=== PATIENT | male | born 1935 | race Caucasian/White ===

== ENCOUNTER 2017-07-09 09:52 | Emergency (ER) | payer MEDICARE ==
[2017-07-09] MEDS ORDERED: ALBUTEROL SULFATE/IPRATROPIUM 3 ML NEBU IH ONE ×2 (10:01→10:03)
--- NOTE | 2017-07-09 10:08 | ERNOTE ---
Medical Problem HPI - Narrative Date of Service: 07/09/17 - General Time Seen by Provider: 07/09/17 09:55 Source: patient Exam Limitations: no limitations - Immun/Allergies/Home Medications Immunizations: IMMUNIZATION HX Immunizations Up to Date Yes History of Influenza Vaccine Yes Hx Pneumococcal Vaccination Yes Allergies/Adverse Reactions: Allergies tramadol Adverse Reaction (Mild, Verified 08/02/16 11:26) Itching Home Medications: HOME MEDICATIONS Tamsulosin HCl [Flomax] 0.4 mg PO DAILY 07/10/12 [Last Taken 10/28/12 18:00] Gemfibrozil [Lopid] 600 mg PO BID 10/30/12 [Last Taken 10/22/14] Isosorbide Mononitrate [Imdur] 30 mg PO DAILY 10/30/12 [Last Taken Unknown] glipiZIDE [Glipizide] 10 mg PO TID 10/09/14 [Last Taken 10/22/14] metFORMIN HCL [Glucophage] 1,000 mg PO BIDWM 10/09/14 [Last Taken 10/22/14] Atorvastatin Calcium [Lipitor] 40 mg PO HS 04/08/16 [Last Taken Unknown] Aspirin [Aspirin Enteric Coated] 81 mg PO DAILY 05/28/16 [Last Taken Unknown] Cholestyramine/Aspartame [Questran Light Packet] 4 gm PO BID 05/28/16 [Last Taken Unknown] Ibuprofen [Motrin] 600 - 800 mg PO Q8H PRN 05/28/16 [Last Taken Unknown] Metoprolol Tartrate [Lopressor] 12.5 mg PO BID 05/28/16 [Last Taken Unknown] Nitroglycerin [Nitrostat] 0.4 mg SL Q5MX3 PRN 05/28/16 [Last Taken Unknown] Albuterol Sulfate [Proair Hfa] 2 puff IH Q4H PRN #1 inhaler 07/09/17 [Last Taken Unknown] Azithromycin [Zithromax] 500 mg PO NOW #6 tab 07/09/17 [Last Taken Unknown] - History of Present History Narrative: Patient presents to the ED with complaints of "I have a cold" He relates that he wanted to "get on top of this" because every time he gets this he "gets a Z- Ephraim and is better within a day or two". He denies SOB. He relates he does have some CP since yesterday but this is with cough only. No fever. No other sick contacts. Cough is dry, no hemoptysis. No calf pain, leg swelling or DVT Sx. No pleuritic pain. His symptoms started yesterday. Timing: constant Severity: moderate Modifying Factors - (Improves): Present: other - nothing Modifying Factors - (Worsens): Present: other - nothign Review of Systems - Review of Systems Constitutional: Absent: fever Respiratory: Present: cough. Absent: shortness of breath Cardiology: Present: See HPI Gastrointestinal/Abdominal: Absent: abdominal pain Genitourinary: Absent: dysuria Neurological: Absent: weakness - Patient's Past Medical History Patient History - Medical: Anemia, Diabetes Type 2, Osteoarthritis Patient History - Cardiac/Respiratory: Coronary Heart Disease, Hypertension, Hyperlipidemia, Myocardial Infarction Patient History - Cancer: No Hx of Cancer Patient History - Surgical Procedures: Appendectomy, Cataracts, Cholecystectomy , Coronary Bypass Surgery, Cardiac stent, EGD, Other Patient History - Other: None - Family History Mother Family History - Medical: , No pertinent hx Family History - Cardiac/Respiratory: No pertinent hx Father Family History - Medical: , No pertinent hx Family History - Cardiac/Respiratory: Myocardial Infarction Brother Family History - Medical: , Diabetes Type 2 Family History - Cardiac/Respiratory: Asthma, Myocardial Infarction Sister Family History - Medical: , Other Family History - Cardiac/Respiratory: Aneurysm - Social History Abuse History: No History of abuse Psych History: No pertinent hx - Immunizations Immunizations Up to Date: Yes Hx Pneumococcal Vaccination: Yes History of Influenza Vaccine: Yes Physical Exam - Physical Exam General Appearance: Present: alert, no apparent distress, other - frequent harsh dry cough Head Exam: Present: normal inspection, no evidence of injury Eye Exam: Normal inspection: bilateral, PERRL: bilateral Ears, Nose, Throat: Present: normal ENT inspection Neck: Present: normal inspection Respiratory: Present: no respiratory distress, normal breath sounds, no accessory muscle use, lungs clear Cardiovascular/Chest: Present: regular rate, rhythm, normal peripheral pulses Gastrointestinal/Abdominal: Present: normal bowel sounds, nontender, soft Back Exam: Present: normal range of motion Extremity Exam: Present: normal inspection, non-tender, no edema Neurological Exam: Present: alert, normal mood/affect, no motor/sensory deficits Skin Exam: Present: normal color, warm/dry ED Progress - Results and Orders Patient's Lab Results:: I have reviewed the patient's lab results. - Vital Signs Patient's Vital Signs:: I have reviewed the patient's vital signs. - EKG EKG: NSR EKG read: Interp. by me EKG Comments: NSR rate 67. PVCs. RBBB. No clear evidence of STEMI. - X-Ray X-Ray #1 X-Ray: chest Interpretation: Interp. by me X-ray Comments: I reviewed official radiology report - Progress/Reassessment Progress Note-Subjective: 07/09/17 10:59 Patient feels like going home. He declines second troponin. Clinically nothing to suggest ACS, PE, aortic dissection or other acute life threat. I discussed warning signs and reasons to return as well as the need for close f/u. 07/09/17 11:00 He is requesting a Z-Ephraim, given his Hx and smoking Hx I will go ahead with this and given him an inhaler for cough. Sx for over 24 hours Departure Clinical Impression: Cough - Departure Disposition: Home self-care Condition: Stable Instructions: Cough, Adult, [id number] Additional Instructions: Rest. Fluids. Follow-up Tuesday at your scheduled appointment. Return for trouble breathing, fever or if your condition worsens or changes in any way. Referrals: Suze Daigle MD [Primary Care Provider] - Prescriptions: Albuterol Sulfate [Proair Hfa] 2 puff IH Q4H PRN #1 inhaler PRN Reason: Cough Azithromycin [Zithromax] 500 mg PO NOW #6 tab
[2017-07-09 10:19] LABS: Hematocrit 38.2 % (42.0-52.0); Hemoglobin 12.6 gm/dL (13.5-18.0); Mean Cell Volume 93.2 fl (78-100); Mean Corpuscular Hemoglobin 30.7 pg (27-31); Mean Platelet Volume 10.8 fl (6.0-9.5); Neutrophil # 3.8 K/mm3 (1.3-6.0); Neutrophil % 58.8 % (42-75.0); Platelet Count 115 K/mm3 (150-450); Red Cell Distribution Width 12.5 % (11.5-14.0); White Blood Count 6.5 K/mm3 (4.0-10.5)
[2017-07-09 10:36] LABS: Anion Gap 14.3 mmol/L (6.8-13.8); Blood Urea Nitrogen 31 mg/dL (6-23); Carbon Dioxide 27.3 mmol/L (24-32.6); Chloride 104 mmol/L (97-106); Estimated Creat Clear 41.1; Glucose * 139 mg/dL (70-110); Potassium 4.6 mmol/L (3.4-4.6); Sodium 141 mmol/L (132-142)
[2017-07-09 10:38] LABS: Troponin I Less than 0.017 ng/ml (0.00-0.10)
[2017-07-09 11:12] VITALS: BP 119/68
== END 2017-07-09 11:11 | disposition home or self-care (01) ==
LOC: ER 09:52
DX: R05 Cough (principal)

== ENCOUNTER 2018-10-31 12:51 | Observation (INO) ==
[2018-10-31 13:22] LABS: Hematocrit 38.6 % (42.0-52.0); Hemoglobin 12.7 gm/dL (13.5-18.0); Mean Cell Volume 93.9 fl (78-100); Mean Corpuscular Hemoglobin 30.9 pg (27-31); Mean Corpuscular Hgb Conc 32.9 g/dl (32-36); Neutrophil # 2.8 K/mm3 (1.3-6.0); Neutrophil % 32.8 % (42-75.0); Platelet Count 109 K/mm3 (150-450); Red Blood Count 4.11 M/mm3 (4.7-6.0); Red Cell Distribution Width 12.8 % (11.5-14.0); White Blood Count 8.6 K/mm3 (4.0-10.5)
--- NOTE | 2018-10-31 13:22 | ERNOTE ---
Dyspnea - Date Date of Service: 10/31/18 - General Presenting Symptoms: shortness of breath, difficulty of breathing, other Time Seen by Provider: 10/31/18 13:03 Source: patient - Immun/Allergies/Home Medications Immunizations: IMMUNIZATION HX Immunizations Up to Date Yes History of Influenza Vaccine No Hx Pneumococcal Vaccination Yes Allergies/Adverse Reactions: Allergies tramadol Adverse Reaction (Mild, Verified 08/27/18 08:51) Itching, difficulty sleeping Home Medications: HOME MEDICATIONS Gemfibrozil [Lopid] 600 mg PO BID 10/30/12 [Last Taken 10/22/14] Isosorbide Mononitrate [Imdur] 30 mg PO QAM 10/30/12 [Last Taken Unknown] Aspirin [Aspirin Enteric Coated] 81 mg PO DAILY 05/28/16 [Last Taken Unknown] Ibuprofen [Motrin] 600 - 800 mg PO Q8H PRN 05/28/16 [Last Taken Unknown] nitroglycerin 0.4 mg sublingual tablet 0.4 mg SL Q5MX3 PRN #20 tab 06/27/18 [Last Taken Unknown] atorvastatin 40 mg tablet 40 mg PO DAILY #90 tab 07/31/18 [Last Taken Unknown] metoprolol tartrate 25 mg tablet 12.5 mg PO BID #90 tab 07/31/18 [Last Taken Unknown] glipizide 10 mg tablet 10 mg PO TID #270 tab 09/18/18 [Last Taken Unknown] metformin 1,000 mg tablet 1,000 mg PO BID #60 tab 10/03/18 [Last Taken Unknown] tamsulosin 0.4 mg capsule 0.4 mg PO HS #90 cap 10/30/18 [Last Taken Unknown] - History of Present Illness Narrative: 83-year-old male with a history of coronary artery disease, status post CABG comes to the emergency department complaining of progressive dyspnea on exertion for the last couple of weeks. Of bigger concern to the patient was chest aching and tightness which started this morning. He was sitting in a chair. Did not seem to get worse with exertion. He did have radiation up to his throat and to the left axilla. He relates that this pain is very very similar to the previous heart problems that he has had. He denies having nausea or diaphoresis. The patient has had no dizziness. No palpitations. He says he was supposed to get a stress test in April but he completely forgot the appointment. It has been 2 years since he has had any evaluation of his heart. He sees a doctor up in [place] for cardiology. Patient has no vomiting diarrhea nausea coughing headache blurred vision or any other changes. He did take a baby aspirin today. When I see him in the ER sitting at rest he has no discomfort in the chest whatsoever Review of Systems - Review of Systems Constitutional: Present: no symptoms reported EYE: Present: no symptoms reported ENT: Present: no symptoms reported Respiratory: Present: shortness of breath, other Cardiology: Present: chest pain - Dyspnea on exertion, other - Radiation as described in HPI Gastrointestinal/Abdominal: Present: no symptoms reported. Absent: nausea, vomiting, diarrhea, constipation, abdominal pain Genitourinary: Present: no symptoms reported Musculoskeletal: Present: neck pain, other Skin: Present: no symptoms reported - Chest pain seems to radiate up into the throat Neurological: Present: no symptoms reported Endocrine: Present: no symptoms reported Hematologic/Lymphatic: Present: no symptoms reported Psych: Present: no symptoms reported All Other Systems: All systems neg except as marked Medical History (Last Reviewed 10/31/18 @ 13:38 by Alaina Mendoza RN) Acute arthritis Onset Date: Unknown CAD (coronary artery disease) Onset Date: Unknown CHF (congestive heart failure) Onset Date: Unknown CKD (chronic kidney disease) Onset Date: Unknown Diabetes mellitus, type II Onset Date: Unknown Diverticulosis Onset Date: Unknown H/O barium enema Onset Date: ~08/19/88 Herniated disc Onset Date: Unknown Hyperlipidemia Onset Date: Unknown Hypertension Onset Date: Unknown Myocardial infarct Onset Date: Unknown Neck pain Onset Date: Unknown Psoriasis Onset Date: Unknown Rotator cuff arthropathy of right shoulder Onset Date: Unknown Rotator cuff tear, left Onset Date: Unknown Shoulder pain, right Onset Date: Unknown Sinusitis Onset Date: Unknown Surgical History: Surgical History (Last Reviewed 10/31/18 @ 13:38 by Alaina Mendoza RN) H/O colonoscopy Onset Date: ~08/02/16 [facility]-tubular adenoma. Recheck 5 yrs. History of appendectomy Onset Date: ~1953 History of arthroscopy of left shoulder Onset Date: ~1989 Dr. Haider History of cardiac cath Onset Date: ~2000 [facility]- left heart cath. 08/04/01, 11/10/93 History of cataract surgery Onset Date: ~09/11/10 [place]- left eye History of esophagogastroduodenoscopy (EGD) Onset Date: ~2015 [facility]- clotest negative. mod chemical irritaion, chronic GE junction inflammation. clotest negative. mild reflux esophagitis, benign chemical gastritis. 10/23/14, 08/02/16 Hx of cholecystectomy Onset Date: ~09/14/94 Hx of local excision of skin lesion Onset Date: ~03/27/07 [place]-left cheek- actinic keratosis Rotator cuff tear Onset Date: ~07/17/12 [facility]--arthroscopic-left S/P epidural steroid injection Onset Date: ~2004 L4-5 07/29/05, 07/13/05 coronary artery bypass graft Onset Date: ~11/11/93 Dr. Donohue Family History: Family History (Last Reviewed 10/31/18 @ 13:38 by Alaina Mendoza RN) Father , 75 Myocardial infarction Mother , 83 Cancer uterine and ovarian Brother , 2 age 65 and 45 Diabetes Asthma Myocardial infarction Heart disease Tuberculosis 2 age 65 and 45 Sister , 2 age 45 and 9 Cerebral aneurysm diptheria 2 age 45 and 9 Sister Hypertension Social History: Preferred Language Stateless Smoking Status Never smoker Abuse History No History of abuse Psych History No pertinent hx (Last Updated 06/23/18 @ 14:49 by Suze Daigle MD) No Social History Section defined Physical Exam - Physical Exam General Appearance: Present: wd/wn, alert, no apparent distress Head Exam: Present: normal inspection, no evidence of injury Eye Exam: Normal inspection: right - Right eye has some conjunctival hemorrhage or blood inferiorly. Patient relates this to an injection for his cataracts he got a few days ago, PERRL: bilateral, EOMI: bilateral Ears, Nose, Throat: Present: normal ENT inspection, normal pharynx Neck: Present: normal inspection, nontender, supple, full range of motion Respiratory: Present: no respiratory distress, normal breath sounds, chest nontender, lungs clear Cardiovascular/Chest: Present: regular rate, rhythm, no murmur Gastrointestinal/Abdominal: Present: normal bowel sounds, nontender, nondistended, soft Back Exam: Present: normal inspection, normal range of motion, no CVA tenderness Extremity Exam: Present: normal inspection, non-tender - Trace of pretibial edema bilateral lower extremities, normal range of motion, other Neurological Exam: Present: alert, oriented, normal mood/affect, no motor/sen linda deficits Skin Exam: Present: normal color, warm/dry Lymphatic Exam: Present: no adenopathy Progress - Results and Orders Patient's Lab Results:: I have reviewed the patient's lab results. - Vital Signs Patient's Vital Signs:: I have reviewed the patient's vital signs. Vital Signs: Vital Signs 10/31/18 12:51 Pulse Rate 64 Respiratory Rate 14 Blood Pressure 141/60 O2 Sat by Pulse Oximetry 97 - EKG EKG #1 EKG: NSR EKG read: Interp. by me EKG Comments: EKG shows sinus rhythm with a VT interval of 208 first-degree AV block. Ventricular rate of 65. Right bundle branch block. There is a single ectopic atrial beat. No ST elevation. Nonspecific T wave changes. No change in morphology when compared to previous EKG dated the 07/09/2017. - X-Ray X-Ray #1 X-Ray: chest Interpretation: Reviewed by me X-ray Comments: No acute cardiopulmonary findings - Progress/Reassessment Chief Complaint: Dyspnea Progress:: Unchanged Progress Note-Subjective: 10/31/18 15:21 Patient does not have dyspnea at rest. He has not been walked around the department. Plan - Plan Plan: This is an 83-year-old gentleman who has not had a stress in a couple of years complaining of symptoms concerning for acute coronary syndrome. First set of enzymes here were negative. BNP is normal. No chest pain here. Got full aspirin. Labs are otherwise really unremarkable. Going to admit for observation and plan on outpatient stress test if that ends up okay. Departure Clinical Impression: Chest pain, Shortness of breath - Departure Disposition: Still a patient Condition: Good Referrals: Suze Daigle MD [Primary Care Provider] -
[2018-10-31 13:44] LABS: Albumin * 3.5 gm/dl (3.4-5.0); Anion Gap 13.8 mmol/L (6.8-13.8); BUN/Creatinine Ratio 21.6 (9.0-21.6); Bilirubin, Total 0.5 mg/dL (0.0-1.1); Ca. Corrected For Albumin 8.6 mg/dL (8.4-10.2); Calcium * 8.5 mg/dL (7.9-10.9); Carbon Dioxide 23.5 mmol/L (24-32.6); Potassium 4.3 mmol/L (3.4-4.6); Total Protein 6.4 gm/dL (6.2-8.2)
[2018-10-31] MEDS ORDERED: NITROGLYCERIN 0.4 MG/TAB BTL SL PRN (17:00)
[2018-10-31] MEDS ORDERED: ROSUVASTATIN CALCIUM 20 MG TABLET PO SCH ×2 (17:30→21:00)
[2018-10-31] MEDS ORDERED: TAMSULOSIN HCL 0.4 MG CAP.SR.24H PO SCH (18:00)
[2018-10-31] MEDS: METOPROLOL TARTRATE 25 MG TABLET PO SCH (20:23)
--- NOTE | 2018-11-01 00:22 | HP ---
Chief Complaint - Chief Complaint Date of Service: 11/01/18 Time of Service: 00:21 Chief Complaint: chest discomfort History of Present Illness: Patient presented to the ER with 1 day chest discomfort. Patient has significant cardiac history including previous AL in 1989 as well as bypass in the late . 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 He had an appointment that he had to cancel and then never rescheduled. Patient states that he thought his pain was more stress/anxiety related but he was not sure and when he continued to have discomfort throughout the day he decided to come to the ER. While in the ER he had a chest x-ray that showed no focal acute cardia pulmonary findings. His initial troponins was within normal limits. His vital signs are stable. Due to his significant cardiac history at that prudent to bring him in to do a cardiac workup and rule out acute coronary syndrome. When seen on the floor, patient was resting comfortably and had no concerns. He denied chest pain states it resolved with a little oxygen administration. He denied radiating pain to his job or shoulder, denied nausea vomiting, denied diaphoresis, denied vision changes or headache. Medical History (Last Reviewed 10/31/18 @ 18:04 by Milka Roger RN) Acute arthritis Onset Date: Unknown CAD (coronary artery disease) Onset Date: Unknown CHF (congestive heart failure) Onset Date: Unknown CKD (chronic kidney disease) Onset Date: Unknown Diabetes mellitus, type II Onset Date: Unknown Diverticulosis Onset Date: Unknown H/O barium enema Onset Date: ~08/19/88 Herniated disc Onset Date: Unknown Hyperlipidemia Onset Date: Unknown Hypertension Onset Date: Unknown Myocardial infarct Onset Date: Unknown Neck pain Onset Date: Unknown Psoriasis Onset Date: Unknown Rotator cuff arthropathy of right shoulder Onset Date: Unknown Rotator cuff tear, left Onset Date: Unknown Shoulder pain, right Onset Date: Unknown Sinusitis Onset Date: Unknown Surgical History: Surgical History (Last Reviewed 10/31/18 @ 18:05 by Milka Roger RN) H/O colonoscopy Onset Date: ~08/02/16 [facility]-tubular adenoma. Recheck 5 yrs. History of appendectomy Onset Date: ~1953 History of arthroscopy of left shoulder Onset Date: ~1989 Dr. Haider History of cardiac cath Onset Date: ~2000 [facility]- left heart cath. 08/04/01, 11/10/93 History of cataract surgery Onset Date: ~09/11/10 [place]- left eye History of esophagogastroduodenoscopy (EGD) Onset Date: ~2015 [facility]- clotest negative. mod chemical irritaion, chronic GE junction inflammation. clotest negative. mild reflux esophagitis, benign chemical gastritis. 10/23/14, 08/02/16 Hx of cholecystectomy Onset Date: ~09/14/94 Hx of local excision of skin lesion Onset Date: ~03/27/07 [place]-left cheek- actinic keratosis Rotator cuff tear Onset Date: ~07/17/12 [facility]--arthroscopic-left S/P epidural steroid injection Onset Date: ~2004 L4-5 07/29/05, 07/13/05 coronary artery bypass graft Onset Date: ~11/11/93 Dr. Donohue Family History: Family History (Last Reviewed 10/31/18 @ 18:05 by Milka Roger RN) Father , 75 Myocardial infarction Mother , 83 Cancer uterine and ovarian Brother , 2 age 65 and 45 Diabetes Asthma Myocardial infarction Heart disease Tuberculosis 2 age 65 and 45 Sister , 2 age 45 and 9 Cerebral aneurysm diptheria 2 age 45 and 9 Sister Hypertension Social History: Patient Lives/Resources With Spouse Utilized Occupation retired Preferred Language Haitian Do you have any caodaism or Yes: Restoration cultural preference? Smoking Status Former smoker Have you smoked in the past 12 No months Do you dip or chew tobacco No Abuse History No History of abuse Psych History No pertinent hx (Last Updated 06/23/18 @ 14:49 by Suze Daigle MD) No Social History Section defined Review Of Systems (GEN) - Review of Systems Generalized/Overall Review: Absent: Weakness, Chills EENTM: Present: No Symptoms Reported Respiratory: Present: No Symptoms Reported Cardiac: Present: Chest Pain. Absent: Edema, Palpitations Abdominal: Present: No Symptoms Reported Musculoskeletal: Present: No Symptoms Reported Neurological: Present: No Symptoms Reported Skin: Present: No Symptoms Reported Immunizations: IMMUNIZATION HX Immunizations Up to Date Yes History of Influenza Vaccine No Hx Pneumococcal Vaccination Yes Allergies/Adverse Reactions: Allergies Allergy/AdvReac Type Severity Reaction Status Date / Time tramadol AdvReac Mild Itching, Verified 08/27/18 08:51 difficulty sleeping Home Medications: HOME MEDICATIONS Gemfibrozil [Lopid] 600 mg PO BID 10/30/12 [Last Taken 10/22/14] Isosorbide Mononitrate [Imdur] 30 mg PO QAM 10/30/12 [Last Taken Unknown] Aspirin [Aspirin Enteric Coated] 81 mg PO DAILY 05/28/16 [Last Taken Unknown] Ibuprofen [Motrin] 600 - 800 mg PO Q8H PRN 05/28/16 [Last Taken Unknown] nitroglycerin 0.4 mg sublingual tablet 0.4 mg SL Q5MX3 PRN #20 tab 06/27/18 [Last Taken Unknown] atorvastatin 40 mg tablet 40 mg PO DAILY #90 tab 07/31/18 [Last Taken Unknown] metoprolol tartrate 25 mg tablet 12.5 mg PO BID #90 tab 07/31/18 [Last Taken Unknown] glipizide 10 mg tablet 10 mg PO TID #270 tab 09/18/18 [Last Taken Unknown] metformin 1,000 mg tablet 1,000 mg PO BID #60 tab 10/03/18 [Last Taken Unknown] tamsulosin 0.4 mg capsule 0.4 mg PO HS #90 cap 10/30/18 [Last Taken Unknown] Exam - Exam Vital Signs: Vital Signs - Last Taken Temp 36.8 C 10/31/18 17:45 Pulse 77 10/31/18 22:00 Resp 16 10/31/18 17:45 BP 139/74 10/31/18 20:23 Pulse Ox 96 10/31/18 17:45 Constitutional: Present: Alert, Oriented x3, Cooperative, Well developed Neck: Present: supple Back Exam: Present: normal inspection, no CVA tenderness Respiratory: Present: chest non-tender, lungs clear, normal breath sounds Cardiovascular/Chest: Present: normal peripheral pulses, regular rate, rhythm, no chest tenderness, no edema, no murmur Abdomen: Present: Normal bowel sounds, soft /Rectal: Present: Exam deferred Extremity: Present: normal inspection, no pedal edema Skin Exam: Present: normal color, warm/dry Appearance: Present: appropriate appearance, appropriate insight Eye contact: Present: cooperative, good eye contact Thoughts: Present: normal thought pattern, normal mood /affect Diagnostic Studies: Abnormal Lab Results 10/31/18 10/31/18 Range/Units 13:14 13:14 RBC 4.11 L (4.7-6.0) M/mm3 Hgb 12.7 L (13.5-18.0) gm/dL Hct 38.6 L (42.0-52.0) % Plt Count 109 L (150-450) K/mm3 Neutrophils % 32.8 L (42-75.0) % Lymphocytes % 56.2 H (20-51) % Lymphocytes # 4.81 H (1.5-3.5) k/mm3 Chloride 107 H (97-106) mmol/L Carbon Dioxide 23.5 L (24-32.6) mmol/L BUN 30 H (6-23) mg/dL Est GFR (Non-Af Amer) 52 L (60-130) mL/min ALT 13 L (19-67) U/L Laboratory Results WBC 8.6 K/mm3 (4.0-10.5) 10/31/18 13:14 RBC 4.11 M/mm3 (4.7-6.0) L 10/31/18 13:14 Hgb 12.7 gm/dL (13.5-18.0) L 10/31/18 13:14 Hct 38.6 % (42.0-52.0) L 10/31/18 13:14 MCV 93.9 fl (78-100) 10/31/18 13:14 MCH 30.9 pg (27-31) 10/31/18 13:14 MCHC 32.9 g/dl (32-36) 10/31/18 13:14 RDW 12.8 % (11.5-14.0) 10/31/18 13:14 Plt Count 109 K/mm3 (150-450) L 10/31/18 13:14 MPV 11.0 fl (8-11.3) 10/31/18 13:14 Immature Gran % (Auto) 0.20 % (0.001-0.429) 10/31/18 13:14 Immature Gran # (Auto) 0.02 K/mm3 (0.000-0.0310) 10/31/18 13:14 Neutrophils % 32.8 % (42-75.0) L 10/31/18 13:14 Lymphocytes % 56.2 % (20-51) H 10/31/18 13:14 Monocytes % 9.0 % (0.0-9) 10/31/18 13:14 Eosinophils % 1.3 % (0.0-3.0) 10/31/18 13:14 Basophils % 0.5 % (0.0-1.0) 10/31/18 13:14 Nucleated RBC % 0.0 k/mm3 (0-1) 10/31/18 13:14 Neutrophils # 2.8 K/mm3 (1.3-6.0) 10/31/18 13:14 Lymphocytes # 4.81 k/mm3 (1.5-3.5) H 10/31/18 13:14 Monocytes # 0.8 k/mm3 (0.0-1.0) 10/31/18 13:14 Eosinophils # 0.1 k/mm3 (0.0-0.7) 10/31/18 13:14 Absolute Basophils 0.0 k/mm3 (0.0-0.1) 10/31/18 13:14 Sodium 140 mmol/L (132-142) 10/31/18 13:14 Plasma Sodium 140 mmol/L (130-142) 10/31/18 13:14 Potassium 4.3 mmol/L (3.4-4.6) 10/31/18 13:14 Chloride 107 mmol/L (97-106) H 10/31/18 13:14 Carbon Dioxide 23.5 mmol/L (24-32.6) L 10/31/18 13:14 Anion Gap 13.8 mmol/L (6.8-13.8) 10/31/18 13:14 BUN 30 mg/dL (6-23) H 10/31/18 13:14 Creatinine 1.39 mg/dL (0.4-1.4) 10/31/18 13:14 Est GFR (Non-Af Amer) 52 mL/min (60-130) L 10/31/18 13:14 BUN/Creatinine Ratio 21.6 (9.0-21.6) 10/31/18 13:14 Random Glucose 102 mg/dL (70-110) 10/31/18 13:14 Calcium 8.5 mg/dL (7.9-10.9) 10/31/18 13:14 Calcium Adj for Albumin 8.6 mg/dL (8.4-10.2) 10/31/18 13:14 Total Bilirubin 0.5 mg/dL (0.0-1.1) 10/31/18 13:14 AST 11 U/L (0-48) 10/31/18 13:14 ALT 13 U/L (19-67) L 10/31/18 13:14 Alkaline Phosphatase 101 U/L (50-170) 10/31/18 13:14 Troponin I Less than 0.017 ng/mL (0.00-0.10) 10/31/18 23:02 B-Natriuretic Peptide 244 pg/mL (5-650) 10/31/18 13:14 Total Protein 6.4 gm/dL (6.2-8.2) 10/31/18 13:14 Albumin 3.5 gm/dl (3.4-5.0) 10/31/18 13:14 Assessment/Plan - Narrative Narrative: Patient brought in under observation to rule out acute coronary syndrome. EKG showed him to be in normal sinus rhythm with first-degree AV block. He also had a right bundle branch block but there are no ST changes, EKG consistent with previous EKG back in 2017. Will continue workup with repeat troponins and EKG. Patient takes atorvastatin and aspirin already. Nitro ordered as needed. Will monitor vital signs are stable at this time. Patient resting comfortably in bed and likely will be able to go home tomorrow as long as there are no changes in his clinical presentation. Nurses will call with any questions or concerns. No DVT prophylaxis at this time as patient will likely be here for less than 24 h ours. Heart healthy diet ordered. - Assessment/Plan (1) History of heart disease Problem: Acute (2) Chest pain Problem: Acute
[2018-11-01] MEDS: glipiZIDE 10 MG TABLET PO SCH ×2 (06:43→11:09)
[2018-11-01] MEDS: METOPROLOL TARTRATE 25 MG TABLET PO SCH (08:12)
[2018-11-01] MEDS ORDERED: ISOSORBIDE MONONITRATE 30 MG TAB.SR.24H PO SCH (09:00)
[2018-11-01] MEDS ORDERED: ASPIRIN 81 MG TABLET.DR PO SCH (09:00)
--- NOTE | 2018-11-01 11:47 | DS ---
(1) History of heart disease Problem: Chronic (2) Chest pain Problem: Resolved Description of Stay: Patient presented to the hospital for chest pain. He has a history of cardiac disease including previous AK as well as bypass in the late . Currently he is being followed by cardiology but has not seen him in over the a year, states he is planning to make an appointment as soon as he is discharged from here. Patient plans to follow-up with Dr. Daigle in the next week or so to discuss his current hospitalization to see if he needs outpatient stress test ordered by herniorrhaphy rather just go through the button maker and installer. Advised to continue his medications as he is on everything that is appropriate at this time. His his workup here was negative for acute coronary syndrome, his troponins were negative and he had no changes on his EKG from previous studies from 2017. His vital signs are stable and his chest pain had resolved by the time I had seen him the night previously. He has not had any chest discomfort, nausea/vomiting, diaphoresis, or swelling of the legs during this event. It is thought that his pain was likely due to to anxiety/stress which again he decides to address this with Dr. Daigle at his follow-up appointment. Patient discharged home in good condition he will call the clinic with any questions or concerns. Procedures Performed: none Results and Findings: Lab Pending Results 10/31/18 13:14: WBC 8.6, RBC 4.11 L, Hgb 12.7 L, Hct 38.6 L, MCV 93.9, MCH 30.9, MCHC 32.9, RDW 12.8, Plt Count 109 L, MPV 11.0, Immature Gran % (Auto) 0.20, Immature Gran # (Auto) 0.02, Neutrophils % 32.8 L, Lymphocytes % 56.2 H, Monocytes % 9.0, Eosinophils % 1.3, Basophils % 0.5, Nucleated RBC % 0.0, Neutrophils # 2.8, Lymphocytes # 4.81 H, Monocytes # 0.8, Eosinophils # 0.1, Absolute Basophils 0.0 10/31/18 13:14: Sodium 140, Plasma Sodium 140, Potassium 4.3, Chloride 107 H, Carbon Dioxide 23.5 L, Anion Gap 13.8, BUN 30 H, Creatinine 1.39, Est GFR (Non- Af Amer) 52 L, BUN/Creatinine Ratio 21.6, Random Glucose 102, Calcium 8.5, Calcium Adj for Albumin 8.6, Total Bilirubin 0.5, AST 11, ALT 13 L, Alkaline Phosphatase 101, B-Natriuretic Peptide 244, Total Protein 6.4, Albumin 3.5 10/31/18 13:14: Troponin I Less than 0.017 10/31/18 17:59: Troponin I Less than 0.017 10/31/18 23:02: Troponin I Less than 0.017 Discharge Location: Home Disposition: Home self-care Condition: Good Discharge Activity: Activity as tolerated Discharge Diet: Low fat/chol Referrals: Suze Daigle MD [Primary Care Provider] - One Week Additional Patient Instructions (free text): -Please make TCM appointment unless alf discharge. Thank you! Maddie @ [phone]. Complete Home Medications List: Complete Home Medication List: Gemfibrozil [Lopid] 600 mg PO BID 10/30/12 Isosorbide Mononitrate [Imdur] 30 mg PO QAM 10/30/12 Aspirin [Aspirin Enteric Coated] 81 mg PO DAILY 05/28/16 Ibuprofen [Motrin] 600 - 800 mg PO Q8H PRN 05/28/16 nitroglycerin 0.4 mg sublingual tablet 0.4 mg SL Q5MX3 PRN #20 tab 06/27/18 atorvastatin 40 mg tablet 40 mg PO DAILY #90 tab 07/31/18 metoprolol tartrate 25 mg tablet 12.5 mg PO BID #90 tab 07/31/18 glipizide 10 mg tablet 10 mg PO TID #270 tab 09/18/18 metformin 1,000 mg tablet 1,000 mg PO BID #60 tab 10/03/18 tamsulosin 0.4 mg capsule 0.4 mg PO HS #90 cap 10/30/18
[2018-11-01 12:25] VITALS: BP 132/51
== END 2018-11-01 12:35 | disposition home or self-care (01) ==
LOC: ER 12:51 → MS 12:51
PROVIDERS: ADMIT Family Medicine; ATTEND Family Medicine
CPT/HCPCS: 36415; 71020; 71046; 80053; 83519; 83880; 84484; 85025; 93005; 94762; 99285; G0378

== ENCOUNTER 2019-01-31 00:51 | Observation (INO) ==
[2019-01-31] MEDS ORDERED: ACETAMINOPHEN 500 MG TABLET PO ONE (01:01)
[2019-01-31 01:17] LABS: Hematocrit 40.4 % (42.0-52.0); Hemoglobin 13.1 gm/dL (13.5-18.0); Mean Cell Volume 97.3 fl (78-100); Mean Corpuscular Hemoglobin 31.6 pg (27-31); Mean Corpuscular Hgb Conc 32.4 g/dl (32-36); Mean Platelet Volume 10.9 fl (8-11.3); Neutrophil # 6.7 K/mm3 (1.3-6.0); Neutrophil % 74.8 % (42-75.0); Platelet Count 119 K/mm3 (150-450); Red Blood Count 4.15 M/mm3 (4.7-6.0); Red Cell Distribution Width 13.4 % (11.5-14.0); White Blood Count 8.9 K/mm3 (4.0-10.5)
[2019-01-31 01:36] LABS: Troponin I Less than 0.017 ng/mL (0.00-0.10)
[2019-01-31 01:39] LABS: ALT 18 U/L (19-67); AST 14 U/L (0-48); Albumin * 3.4 gm/dl (3.4-5.0); Alkaline Phosphatase * 83 U/L (50-170); Anion Gap 14.2 mmol/L (6.8-13.8); Bilirubin, Total 0.5 mg/dL (0.0-1.1); Blood Urea Nitrogen 31 mg/dL (6-23); Ca. Corrected For Albumin 8.6 mg/dL (8.4-10.2); Calcium * 8.4 mg/dL (7.9-10.9); Carbon Dioxide 24.1 mmol/L (24-32.6); Chloride 107 mmol/L (97-106); Glucose * 188 mg/dL (70-110); Potassium 5.3 mmol/L (3.4-4.6); Sodium 140 mmol/L (132-142); Total Protein 6.4 gm/dL (6.2-8.2)
[2019-01-31 02:12] LABS: Urine Bilirubin Negative (NEGATIVE); Urine Blood Negative /ul (NEGATIVE); Urine Ketone Negative (NEGATIVE); Urine Nitrite Negative (NEGATIVE); Urine Protein Negative (NEGATIVE); Urine Urobilinogen Normal (NORMAL)
[2019-01-31 02:28] LABS: Urine Appearance Clear (CLEAR); Urine Bacteria None Seen; Urine Color Yellow; Urine RBC None Seen /hpf (0-5); Urine WBC None Seen /hpf (0-5)
[2019-01-31] MEDS ORDERED: NORMAL SALINE 1,000 ML IV ONE ×2 (02:35→05:09)
--- NOTE | 2019-01-31 04:17 | ERNOTE ---
Medical Problem HPI - General Chief Complaint: General Assessment Time Seen by Provider: 01/31/19 00:56 Source: patient, family, RN notes reviewed Exam Limitations: hard of hearing - Immun/Allergies/Home Medications Immunizations: IMMUNIZATION HX Immunizations Up to Date Yes History of Influenza Vaccine More Information Required Hx Pneumococcal Vaccination More Information Required Allergies/Adverse Reactions: Allergies tramadol Adverse Reaction (Mild, Verified 01/31/19 08:01) Itching, difficulty sleeping Home Medications: HOME MEDICATIONS Isosorbide Mononitrate [Imdur] 30 mg PO QAM 10/30/12 [Last Taken Unknown] Aspirin [Aspirin Enteric Coated] 81 mg PO DAILY 05/28/16 [Last Taken Unknown] Ibuprofen [Motrin] 600 - 800 mg PO Q8H PRN 05/28/16 [Last Taken Unknown] atorvastatin 40 mg tablet 40 mg PO DAILY #90 tab 07/31/18 [Last Taken Unknown] metoprolol tartrate 25 mg tablet 12.5 mg PO BID #90 tab 07/31/18 [Last Taken Unknown] glipizide 10 mg tablet 10 mg PO TID #270 tab 09/18/18 [Last Taken Unknown] tamsulosin 0.4 mg capsule 0.4 mg PO HS #90 cap 10/30/18 [Last Taken Unknown] gemfibrozil 600 mg tablet 600 mg PO BID #60 tab 01/09/19 [Last Taken Unknown] metformin 1,000 mg tablet 1,000 mg PO BID #60 tab 01/09/19 [Last Taken Unknown] nitroglycerin 0.4 mg sublingual tablet 0.4 mg SL Q5MX3 PRN #20 tab 01/24/19 [Last Taken Unknown] - History of Present History Narrative: Patient has not felt well for a couple of days. Tonight he was weaker, and running a fever so spouse had him brought in by EMS. Patient with a fever, has a 500 mL bag of normal saline running. Spouse reports that he has not felt well for a couple of days, but he is not able to stay upright tonight, which scared her so she called EMS. Patient quite tired, is mostly sleeping. When he stands, his heart rate races. Patient doesn't talk much, spouse reports he is hard of hearing. Timing: constant, getting worse Severity: moderate, severe Modifying Factors - (Improves): Present: rest Modifying Factors - (Worsens): Present: movement Review of Systems - Review of Systems Constitutional: Present: recent illness, fever, chills, diaphoresis, weakness, fatigue, malaise, decreased activity level EYE: Absent: eye pain ENT: Absent: ear pain, nasal drainage, sore throat Respiratory: Present: shortness of breath - when standing. Absent: cough Cardiology: Present: palpitations. Absent: chest pain Gastrointestinal/Abdominal: Absent: nausea, vomiting, diarrhea, abdominal pain Genitourinary: Absent: frequency, pain, dysuria, hematuria Musculoskeletal: Absent: back pain, muscle pain, joint pain Skin: Present: no symptoms reported Neurological: Present: no symptoms reported Endocrine: Present: no symptoms reported Hematologic/Lymphatic: Present: no symptoms reported Psych: Present: no symptoms reported Medical History (Updated 02/01/19 @ 08:01 by Cecelia Da Silva) Acute arthritis Onset Date: Unknown CAD (coronary artery disease) Onset Date: Unknown CHF (congestive heart failure) Onset Date: Unknown CKD (chronic kidney disease) Onset Date: Unknown Diabetes mellitus, type II Onset Date: Unknown Diverticulosis Onset Date: Unknown H/O barium enema Onset Date: ~08/19/88 Herniated disc Onset Date: Unknown Hyperlipidemia Onset Date: Unknown Hypertension Onset Date: Unknown Myocardial infarct Onset Date: Unknown Neck pain Onset Date: Unknown Psoriasis Onset Date: Unknown Rotator cuff arthropathy of right shoulder Onset Date: Unknown Rotator cuff tear, left Onset Date: Unknown Shoulder pain, right Onset Date: Unknown Sinusitis Onset Date: Unknown Surgical History: Surgical History (Updated 11/15/18 @ 09:37 by Daniela Riddle LPN) H/O colonoscopy Onset Date: ~08/02/16 [place]-tubular adenoma. Recheck 5 yrs. History of appendectomy Onset Date: ~1953 History of arthroscopy of left shoulder Onset Date: ~1989 Dr. Haider History of cardiac cath Onset Date: ~2000 [facility]- left heart cath. 08/04/01, 11/10/93 History of cataract surgery Onset Date: ~09/11/10 [place]- left eye, right eye 09/09 History of esophagogastroduodenoscopy (EGD) Onset Date: ~2015 [place]- clotest negative. mod chemical irritaion, chronic GE junction inflammation. clotest negative. mild reflux esophagitis, benign chemical gastritis. 10/23/14, 08/02/16 Hx of cholecystectomy Onset Date: ~09/14/94 Hx of local excision of skin lesion Onset Date: ~03/27/07 [place]-left cheek- actinic keratosis Rotator cuff tear Onset Date: ~07/17/12 [place]--arthroscopic-left S/P epidural steroid injection Onset Date: ~2004 L4-5 07/29/05, 07/13/05 coronary artery bypass graft Onset Date: ~11/11/93 Dr. Donohue Family History: Family History (Updated 04/10/18 @ 07:37 by Joel Henriquez MA) Father , 75 Myocardial infarction Mother , 83 Cancer uterine and ovarian Brother , 2 age 65 and 45 Diabetes Asthma Myocardial infarction Heart disease Tuberculosis 2 age 65 and 45 Sister , 2 age 45 and 9 Cerebral aneurysm diptheria 2 age 45 and 9 Sister Hypertension Social History: Preferred Language [place] Islander Do you have any evangelical or No cultural preference? Smoking Status Former smoker Abuse History No History of abuse Psych History No pertinent hx Alcohol Use none Drug Use none (Last Updated 11/15/18 @ 12:03 by CLARISA Alfredo) No Social History Section defined Physical Exam - Physical Exam General Appearance: Present: wd/wn, no apparent distress, lethargic, thin Head Exam: Present: normal inspection, no evidence of injury Eye Exam: Normal inspection: bilateral, PERRL: bilateral, EOMI: bilateral Ears, Nose, Throat: Present: normal ENT inspection, normal pharynx Neck: Present: normal inspection, nontender Respiratory: Present: no respiratory distress, normal breath sounds, no accessory muscle use, chest nontender, lungs clear Cardiovascular/Chest: Present: regular rate, rhythm, no murmur, normal peripheral pulses Gastrointestinal/Abdominal: Present: normal bowel sounds, nontender, n ondistended, soft Extremity Exam: Present: normal inspection, non-tender, normal range of motion, no edema Neurological Exam: Present: alert, oriented, normal mood/affect, no motor/sensory deficits, 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 Results and Orders: HGB 13.1, HCT 41.4, Platelets 119 K+ 5.3, BUN 31, Cr. 1.55, Glucose 188, Troponin <0.017 Urinalysis normal Influrenza A neg, B neg Mycoplasma Nonreactive - Vital Signs Patient's Vital Signs:: I have reviewed the patient's vital signs. Vital Signs: Vital Signs 01/31/19 00:54 01/31/19 02:07 01/31/19 02:40 Temperature 39.2 C H 39.1 C H 38.8 C H Pulse Rate 108 H 107 H 106 H Respiratory Rate 12 12 14 Blood Pressure 117/59 125/63 O2 Sat by Pulse Oximetry 94 95 94 01/31/19 03:33 01/31/19 04:07 Temperature 38.6 C H Pulse Rate 105 H 111 H Respiratory Rate 12 12 Blood Pressure 131/65 141/84 O2 Sat by Pulse Oximetry 93 95 - X-Ray X-Ray #1 X-Ray: chest Interpretation: Reviewed by me X-ray Comments: [address] [place] [address] NAME: Scottie Bonilla : 1935 MR #: [id number] CC: Tenzin Ontiveros DO LOC: [place] ADM DATE: 01/31/19 DIS DATE: X-RAY REPORT ~[id number] RAD/Chest PA & Lateral *~ Exam Date: 01/31/2019 02:07 Ordering Physician: Cecelia Da Silva History: Fever. Shortness of breath. Weakness. Low O2 sats. Technique: PA and lateral views of the chest are compared to prior dated October 31, 2018. Findings: Stable median sternotomy wires and post-CABG changes. Diffuse hyperinflation of the lungs bilaterally with flattening of the hemidiaphragm. Stable calcified granulomas. Stable calcified hilar lymph nodes. The lungs are clear bilaterally. There is no consolidation, pleural effusion or pneumothorax. Cardiac silhouette and pulmonary vasculature are normal. The osseous structures demonstrate degenerative changes of the spine and shoulders. IMPRESSION: NO ACUTE CARDIOPULMONARY ABNORMALITY IDENTIFIED. Electronically signed by Dakota Dowd D.O.. Dakota Dowd DO Dict: 01/31/19 0708 Typed: 01/31/19 0708/ 01/31/19 0709 01/31/19 0711 - Progress/Reassessment Chief Complaint: General Assessment Progress:: Unchanged Progress Note-Subjective: 02/01/19 07:[address] Ontiveros, physician curator of education, requesting that he admit the patient for observation, to which he agreed. Patient tachycardic on standing, blood pressure continues on the low side of normal. Patient to be admitted to observation. Departure Clinical Impression: Fever, unknown origin - Departure Disposition: Still a patient Condition: Fair
[2019-01-31] MEDS ORDERED: ACETAMINOPHEN 500 MG TABLET PO PRN ×2 (05:12→06:16)
[2019-01-31] MEDS ORDERED: IBUPROFEN 200 MG TABLET PO PRN (10:40)
[2019-01-31] MEDS ORDERED: NITROGLYCERIN 0.4 MG/TAB BTL SL PRN (10:40)
--- NOTE | 2019-01-31 11:04 | HP ---
Chief Complaint - Chief Complaint Date of Service: 01/31/19 Time of Service: 20:00 Chief Complaint: Fever, weakness in the etiology of both is unknown. History of Present Illness: Scottie Bonilla is an 83-year-old male who had been in his usual state of health until a couple of days ago when he started running fever and developed a severe headache. He had no other constitutional complaints such as coughing, dysuria, abdominal pain etc. He came to the emergency room last night and the cause of his fever is not obvious from the exam. The urinalysis and chest x- rays were normal. The belly exam is normal. This morning his fever is gone and his headache is gone as well. He still is very weak and hypersomnolent however. Etiology is still unknown. On admission Mr. Bonilla's heart went into atrial fibrillation with RVR at a rate of about 180. He tolerated it fairly well. I given an order for diltiazem but just before administering he converted back to normal sinus rhythm. He has had occasional PVCs on the monitor but no more A. fib with RVR. Medical History (Updated 11/15/18 @ 12:00 by CLARISA Alfredo) Acute arthritis Onset Date: Unknown CAD (coronary artery disease) Onset Date: Unknown CHF (congestive heart failure) Onset Date: Unknown CKD (chronic kidney disease) Onset Date: Unknown Diabetes mellitus, type II Onset Date: Unknown Diverticulosis Onset Date: Unknown H/O barium enema Onset Date: ~08/19/88 Herniated disc Onset Date: Unknown Hyperlipidemia Onset Date: Unknown Hypertension Onset Date: Unknown Myocardial infarct Onset Date: Unknown Neck pain Onset Date: Unknown Psoriasis Onset Date: Unknown Rotator cuff arthropathy of right shoulder Onset Date: Unknown Rotator cuff tear, left Onset Date: Unknown Shoulder pain, right Onset Date: Unknown Sinusitis Onset Date: Unknown Surgical History: Surgical History (Updated 11/15/18 @ 09:37 by Daniela Riddle LPN) H/O colonoscopy Onset Date: ~08/02/16 [place]-tubular adenoma. Recheck 5 yrs. History of appendectomy Onset Date: ~1953 History of arthroscopy of left shoulder Onset Date: ~1989 Dr. Haider History of cardiac cath Onset Date: ~2000 [facility]- left heart cath. 08/04/01, 11/10/93 History of cataract surgery Onset Date: ~09/11/10 [place]- left eye, right eye 09/09 History of esophagogastroduodenoscopy (EGD) Onset Date: ~2015 [place]- clotest negative. mod chemical irritaion, chronic GE junction inflammation. clotest negative. mild reflux esophagitis, benign chemical gastritis. 10/23/14, 08/02/16 Hx of cholecystectomy Onset Date: ~09/14/94 Hx of local excision of skin lesion Onset Date: ~03/27/07 [place]-left cheek- actinic keratosis Rotator cuff tear Onset Date: ~07/17/12 [place]--arthroscopic-left S/P epidural steroid injection Onset Date: ~2004 L4-5 07/29/05, 07/13/05 coronary artery bypass graft Onset Date: ~11/11/93 Dr. Donohue Family History: Family History (Updated 04/10/18 @ 07:37 by Joel Henriquez MA) Father , 75 Myocardial infarction Mother , 83 Cancer uterine and ovarian Brother , 2 age 65 and 45 Diabetes Asthma Myocardial infarction Heart disease Tuberculosis 2 age 65 and 45 Sister , 2 age 45 and 9 Cerebral aneurysm diptheria 2 age 45 and 9 Sister Hypertension Social History: Patient Lives/Resources Home Utilized Preferred Language Amharic Do you have any worship or No cultural preference? Smoking Status Former smoker Have you smoked in the past 12 No months Do you dip or chew tobacco No Abuse History No History of abuse Psych History No pertinent hx Alcohol Use none Drug Use none (Last Updated 11/15/18 @ 12:03 by CLARISA Alfredo) No Social History Section defined Review Of Systems (GEN) - Review of Systems Generalized/Overall Review: Present: Weakness, Malaise, Fatigue EENTM: Present: No Symptoms Reported Respiratory: Present: No Symptoms Reported Cardiac: Present: No Symptoms Reported Abdominal: Present: No Symptoms Reported Genitourinary: Present: No Symptoms Reported Musculoskeletal: Present: No Symptoms Reported Neurological: Present: Weakness, Other - Headache described as global Skin: Present: No Symptoms Reported Endocrine: Present: No Symptoms Reported Misc: All systems neg except as marked Immunizations: IMMUNIZATION HX Immunizations Up to Date Yes History of Influenza Vaccine More Information Required Hx Pneumococcal Vaccination More Information Required Allergies/Adverse Reactions: Allergies Allergy/AdvReac Type Severity Reaction Status Date / Time tramadol AdvReac Mild Itching, Verified 01/31/19 08:01 difficulty sleeping Home Medications: HOME MEDICATIONS Isosorbide Mononitrate [Imdur] 30 mg PO QAM 10/30/12 [Last Taken Unknown] Aspirin [Aspirin Enteric Coated] 81 mg PO DAILY 05/28/16 [Last Taken Unknown] Ibuprofen [Motrin] 600 - 800 mg PO Q8H PRN 05/28/16 [Last Taken Unknown] atorvastatin 40 mg tablet 40 mg PO DAILY #90 tab 07/31/18 [Last Taken Unknown] metoprolol tartrate 25 mg tablet 12.5 mg PO BID #90 tab 07/31/18 [Last Taken Unknown] glipizide 10 mg tablet 10 mg PO TID #270 tab 09/18/18 [Last Taken Unknown] tamsulosin 0.4 mg capsule 0.4 mg PO HS #90 cap 10/30/18 [Last Taken Unknown] gemfibrozil 600 mg tablet 600 mg PO BID #60 tab 01/09/19 [Last Taken Unknown] metformin 1,000 mg tablet 1,000 mg PO BID #60 tab 01/09/19 [Last Taken Unknown] nitroglycerin 0.4 mg sublingual tablet 0.4 mg SL Q5MX3 PRN #20 tab 01/24/19 [Last Taken Unknown] Exam - Exam Vital Signs: Vital Signs - Last Taken Temp 36.9 C 01/31/19 08:57 Pulse 85 01/31/19 08:57 Resp 20 01/31/19 07:53 BP 113/54 01/31/19 08:57 Pulse Ox 94 01/31/19 08:57 Constitutional: Present: Somnolent - But arousable and answers questions and follows commands appropriately., Elderly ENT Exam: Present: normal ENT inspection, hard of hearing Eye Exam: bilateral eye: normal inspection, PERRL, EOMI Neck: Present: non-tender, limited range of motion. Absent: stiff neck Back Exam: Present: normal inspection, no CVA tenderness, no vertebral tenderness Breasts: Present: Exam deferred Respiratory: Present: chest non-tender, lungs clear, normal breath sounds, no respiratory distress, no accessory muscle use Cardiovascular/Chest: Present: normal peripheral pulses, regular rate, rhythm, no chest tenderness, no gallop, no JVD, no murmur, no rub Peripheral Pulses: carotid (R): 2+, carotid (L): 2+, radial (R): 2+, radial (L): 2+ Abdomen: Present: Normal bowel sounds, soft, nontender, nondistended, no rebound tenderness, no hepatospenomegaly, no masses /Rectal: Present: Exam deferred Extremity: Present: normal range of motion Skin Exam: Present: normal color, warm/dry - He has been hot to touch on admission 1 febrile. I have recorded temperature here is 38C. 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 Absent: sensory deficit Appearance: Present: appropriate appearance, neat Eye contact: Present: cooperative, good eye contact, normal speech Thoughts: Present: normal thought pattern, no apparent hallucination Diagnostic Studies: Abnormal Lab Results 01/31/19 01/31/19 Range/Units 01:15 01:15 RBC 4.15 L (4.7-6.0) M/mm3 Hgb 13.1 L (13.5-18.0) gm/dL Hct 40.4 L (42.0-52.0) % MCH 31.6 H (27-31) pg Plt Count 119 L (150-450) K/mm3 Lymphocytes % 19.6 L (20-51) % Neutrophils # 6.7 H (1.3-6.0) K/mm3 Potassium 5.3 H (3.4-4.6) mmol/L Chloride 107 H (97-106) mmol/L Anion Gap 14.2 H (6.8-13.8) mmol/L BUN 31 H (6-23) mg/dL Creatinine 1.55 H (0.4-1.4) mg/dL Est GFR (Non-Af Amer) 46 L (60-130) mL/min Random Glucose 188 H (70-110) mg/dL ALT 18 L (19-67) U/L Laboratory Results WBC 8.9 K/mm3 (4.0-10.5) 01/31/19 01:15 RBC 4.15 M/mm3 (4.7-6.0) L 01/31/19 01:15 Hgb 13.1 gm/dL (13.5-18.0) L 01/31/19 01:15 Hct 40.4 % (42.0-52.0) L 01/31/19 01:15 MCV 97.3 fl (78-100) 01/31/19 01:15 MCH 31.6 pg (27-31) H 01/31/19 01:15 MCHC 32.4 g/dl (32-36) 01/31/19 01:15 RDW 13.4 % (11.5-14.0) 01/31/19 01:15 Plt Count 119 K/mm3 (150-450) L 01/31/19 01:15 MPV 10.9 fl (8-11.3) 01/31/19 01:15 Immature Gran % (Auto) 0.30 % (0.001-0.429) 01/31/19 01:15 Immature Gran # (Auto) 0.03 K/mm3 (0.000-0.0310) 01/31/19 01:15 74.8 % (42-75.0) 01/31/19 01:15 19.6 % (20-51) L 01/31/19 01:15 4.7 % (0.0-9) 01/31/19 01:15 0.4 % (0.0-3.0) 01/31/19 01:15 0.2 % (0.0-1.0) 01/31/19 01:15 Nucleated RBC % 0.0 k/mm3 (0-1) 01/31/19 01:15 6.7 K/mm3 (1.3-6.0) H 01/31/19 01:15 1.74 k/mm3 (1.5-3.5) 01/31/19 01:15 0.4 k/mm3 (0.0-1.0) 01/31/19 01:15 0.0 k/mm3 (0.0-0.7) 01/31/19 01:15 Absolute Basophils 0.0 k/mm3 (0.0-0.1) 01/31/19 01:15 Sodium 140 mmol/L (132-142) 01/31/19 01:15 141 mmol/L (130-142) 01/31/19 01:15 Potassium 5.3 mmol/L (3.4-4.6) H 01/31/19 01:15 Chloride 107 mmol/L (97-106) H 01/31/19 01:15 Carbon Dioxide 24.1 mmol/L (24-32.6) 01/31/19 01:15 14.2 mmol/L (6.8-13.8) H 01/31/19 01:15 BUN 31 mg/dL (6-23) H 01/31/19 01:15 1.55 mg/dL (0.4-1.4) H 01/31/19 01:15 Est GFR (Non-Af Amer) 46 mL/min (60-130) L 01/31/19 01:15 20.0 (9.0-21.6) 01/31/19 01:15 188 mg/dL (70-110) H 01/31/19 01:15 0.8 mmol/L (0.4-2.0) 01/31/19 01:15 Calcium 8.4 mg/dL (7.9-10.9) 01/31/19 01:15 Calcium Adj for Albumin 8.6 mg/dL (8.4-10.2) 01/31/19 01:15 0.5 mg/dL (0.0-1.1) 01/31/19 01:15 AST 14 U/L (0-48) 01/31/19 01:15 ALT 18 U/L (19-67) L 01/31/19 01:15 83 U/L (50-170) 01/31/19 01:15 Less than 0.017 ng/mL (0.00-0.10) 01/31/19 01:15 6.4 gm/dL (6.2-8.2) 01/31/19 01:15 3.4 gm/dl (3.4-5.0) 01/31/19 01:15 Yellow 01/31/19 02:07 Clear (CLEAR) 01/31/19 02:07 6.0 pH (5.0-7.0) 01/31/19 02:07 Ur Specific Hyrum 1.010 SP.GR. (1.005-1.030) 01/31/19 02:07 Negative mg/dL (NEGATIVE) 01/31/19 02:07 Negative mg/dL (NEGATIVE) 01/31/19 02:07 Negative mg/dL (NEGATIVE) 01/31/19 02:07 Negative /ul (NEGATIVE) 01/31/19 02:07 Negative (NEGATIVE) 01/31/19 02:07 Negative mg/dl (NEGATIVE) 01/31/19 02:07 Normal EU/dl (NORMAL) 01/31/19 02:07 Ur Leukocyte Esterase Negative /ul (NEGATIVE) 01/31/19 02:07 None seen /hpf (0-5) 01/31/19 02:07 None seen /hpf (0-5) 01/31/19 02:07 Ur Epithelial Cells None seen /hpf (0-5) 01/31/19 02:07 None seen (NONE) 01/31/19 02:07 No culture indicated 01/31/19 02:07 Influenza Type A Ag Negative (NEGATIVE) 01/31/19 01:15 Influenza Type B Ag Negative (NEGATIVE) 01/31/19 01:15 Mycoplasma pneumon IgM Non reactive (NonReactive) 01/31/19 01:15 Assessment/Plan - Narrative Narrative: 1. Repeat CBC CMP sed rate CPK and troponin 2. MRI of the brain without contrast 3. Continue current medications as ordered 4. PT/OT to evaluate for motor strength and ADL capability 5. Progress activity as tolerated try to get him up and walking soon as possible. - Assessment/Plan (1) Fever, unknown origin Problem: Acute (2) History of heart disease Problem: Chronic (3) Type 2 diabetes mellitus Problem: Chronic Qualifiers: Diabetes mellitus moth exterminator insulin use: without moth exterminator use Diabetes mellitus complication status: without complication Qualified Code(s): E11.9 - Type 2 diabetes mellitus without complications (4) Coronary artery disease Problem: Chronic Qualifiers: Coronary Disease-Associated Artery/Lesion type: [place] artery [place] vs. transplanted heart: [place] heart Associated angina: without angina Qualified Code(s): I25.10 - Atherosclerotic heart disease of [place] coronary artery without angina pectoris
[2019-01-31] MEDS: glipiZIDE 10 MG TABLET PO SCH ×2 (12:35→17:30)
[2019-01-31] MEDS ORDERED: TAMSULOSIN HCL 0.4 MG CAP.SR.24H PO SCH (21:00)
[2019-01-31] MEDS ORDERED: ROSUVASTATIN CALCIUM 20 MG TABLET PO SCH (21:00)
[2019-01-31] MEDS: METOPROLOL TARTRATE 25 MG TABLET PO SCH (21:30)
[2019-02-01] MEDS ORDERED: ASPIRIN 81 MG TABLET.DR PO SCH (09:00)
[2019-02-01] MEDS ORDERED: ISOSORBIDE MONONITRATE 30 MG TAB.SR.24H PO SCH (09:00)
[2019-02-01] MEDS: METOPROLOL TARTRATE 25 MG TABLET PO SCH (09:50)
[2019-02-01] MEDS: glipiZIDE 10 MG TABLET PO SCH (09:50)
--- NOTE | 2019-02-01 09:58 | DS ---
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 transplanted heart: [place] heart Associated angina: without angina Qualified Code(s): I25.10 - Atherosclerotic heart disease of [place] coronary artery w ithout angina pectoris (5) Acute prostatitis Problem: Suspected Description of Stay: Scottie Bonilla is an 83-year-old male who enjoys good health for the most part. He and his had eaten at a local restaurant and shortly afterwards he started having fevers and then this was followed by chills that became shaking chills to the point he could not get warm even under heavy quilts at home. The fever then broke and became extremely hot and and then became weak and somewhat incoherent. He was then brought to the hospital per private vehicle and was evaluated there. The evaluation did not reveal the nidus of his infection but it was obvious clinically that he had an infection from something. I suspect from a occult prostatitis. He was started empirically on Rocephin. The following morning he was much more alert and sitting up eating breakfast and feeling much better. He has not had any more fever or shaking chills since admission and his mental status is cleared. Urinalysis, chest x-ray, cultures, and brain MRI are all unrevealing as to a nidus of section. There have been no GI complaints. This morning he is sitting up, conversant, feeling much better, has ambulated to the bathroom without difficulty and has eaten breakfast without difficulty. He therefore will be discharged home. Disposition is improved and his prognosis is good. Procedures Performed: none Results and Findings: Pending Mircobiology Results 01/31/19 01:55 Blood Blood Culture - Preliminary NO GROWTH 24 HOURS 01/31/19 01:15 Blood Blood Culture - Preliminary NO GROWTH 24 HOURS Lab Pending Results 01/31/19 01:15: WBC 8.9, RBC 4.15 L, Hgb 13.1 L, Hct 40.4 L, MCV 97.3, MCH 31.6 H, MCHC 32.4, RDW 13.4, Plt Count 119 L, MPV 10.9, Immature Gran % (Auto) 0.30, Immature Gran # (Auto) 0.03, Neutrophils % 74.8, Lymphocytes % 19.6 L, Monocytes % 4.7, Eosinophils % 0.4, Basophils % 0.2, Nucleated RBC % 0.0, Neutrophils # 6.7 H, Lymphocytes # 1.74, Monocytes # 0.4, Eosinophils # 0.0, Absolute Basophils 0.0 01/31/19 01:15: Sodium 140, Plasma Sodium 141, Potassium 5.3 H, Chloride 107 H, Carbon Dioxide 24.1, Anion Gap 14.2 H, BUN 31 H, Creatinine 1.55 H, Est GFR (Non-Af Amer) 46 L, BUN/Creatinine Ratio 20.0, Random Glucose 188 H, Calcium 8.4, Calcium Adj for Albumin 8.6, Total Bilirubin 0.5, AST 14, ALT 18 L, Alkaline Phosphatase 83, Troponin I Less than 0.017, Total Protein 6.4, Albumin 3.4 01/31/19 01:15: Lactic Acid, Venous 0.8 01/31/19 01:15: Influenza Type A Ag Negative, Influenza Type B Ag Negative 01/31/19 01:15: Mycoplasma pneumon IgM Non reactive 01/31/19 02:07: Urine Color Yellow, Urine Appearance Clear, Urine pH 6.0, Ur Specific Foley 1.010, Urine Protein Negative, Urine Glucose (UA) Negative, Urine Ketones Negative, Urine Blood Negative, Urine Nitrate Negative, Urine Bilirubin Negative, Urine Urobilinogen Normal, Ur Leukocyte Esterase Negative, Urine RBC None seen, Urine WBC None seen, Ur Epithelial Cells None seen, Urine Bacteria None seen, Urine Culture Comments No culture indicated 01/31/19 14:45: Group A Strep Rapid Negative Discharge Location: Home Disposition: Home self-care Condition: Good Face to Face Encounter completed per CMS Guidelines: No Discharge Activity: Activity as tolerated Discharge Diet: General/regular food Referrals: Suze Daigle MD [Primary Care Provider] - Additional Patient Instructions (free text): Scheduled to see Dr. Daigle in 2 weeks -Please make TCM appointment unless assisted discharge. Thank you! Cathy at extension [phone]. Complete Home Medications List: Complete Home Medication List: Isosorbide Mononitrate [Imdur] 30 mg PO QAM 10/30/12 Aspirin [Aspirin Enteric Coated] 81 mg PO DAILY 05/28/16 Ibuprofen [Motrin] 600 - 800 mg PO Q8H PRN 05/28/16 atorvastatin 40 mg tablet 40 mg PO DAILY #90 tab 07/31/18 metoprolol tartrate 25 mg tablet 12.5 mg PO BID #90 tab 07/31/18 glipizide 10 mg tablet 10 mg PO TID #270 tab 09/18/18 tamsulosin 0.4 mg capsule 0.4 mg PO HS #90 cap 10/30/18 gemfibrozil 600 mg tablet 600 mg PO BID #60 tab 01/09/19 metformin 1,000 mg tablet 1,000 mg PO BID #60 tab 01/09/19 nitroglycerin 0.4 mg sublingual tablet 0.4 mg SL [id number] PRN #20 tab 01/24/19 Acetaminophen [Tylenol] 1,000 mg PO Q8H PRN tablet 02/01/19 Cefuroxime Axetil [Ceftin] 500 mg PO Q12H #14 tab 02/01/19
[2019-02-01] MEDS ORDERED: CEFUROXIME AXETIL 500 MG TABLET PO SCH (10:00)
[2019-02-01 10:14] VITALS: BP 127/60
== END 2019-02-01 11:00 | disposition home or self-care (01) ==
LOC: MS 00:51 → ER 00:51
PROVIDERS: ADMIT Family Medicine; ATTEND Family Medicine
CPT/HCPCS: 36415; 70553; 71020; 71046; 80053; 81001; 83605; 84484; 85025; 86738; 87040; 87081; 87400; 87430; 87449; 93005; 96360; 96361; 99285; A9576; G0378